=== PATIENT | male | born 1975 | race Caucasian/White ===

== ENCOUNTER 2019-04-24 10:20 | Emergency (ER) | payer BC ==
--- NOTE | 2019-04-24 10:22 | EDM.PDOC ---
ED HPI GENERAL MEDICAL PROBLEM - General Chief Complaint: Skin Complaint Stated Complaint: rash on left arm Time Seen by Provider: 04/24/19 10:21 Source of Information: Reports: Patient History Limitations: Reports: No Limitations - History of Present Illness INITIAL COMMENTS - FREE TEXT/NARRATIVE: HISTORY AND PHYSICAL: History of present illness: Patient is a 43-year-old male presenting to the emergency room for chief complaint of rash on his left arm. Patient states approximately 3 weeks ago he had a small rash on his left forearm which has been increasing in size since. He reports it is itchy at times and was sleepy last night and draining. He denies change in laundry detergent, softener, or new lotion. 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 He states the rash feels dry and dempsey when washing it. He has tried working hands lotion which has not helped and then switch to [place] Nicky cream which did not help. Patient denies any fever, chills, headache, change in vision, syncope or near syncope. Denies any chest pain, back pain, shortness of breath or cough. Denies any abdominal pain, nausea , vomiting, diarrhea, constipation or dysuria. Has not noted any blood in urine or stool. Patient has been eating and drinking appropriately. Review of systems: As per history of present illness and below otherwise all systems reviewed and negative. Past medical history: As per history of present illness and as reviewed below otherwise noncontributory. Surgical history: As per history of present illness and as reviewed below otherwise noncontributory. Social history: See social history for further information Family history: As per history of present illness and as reviewed below otherwise noncontributory. Physical exam: General: He is a well-developed and well-nourished 43-year-old male. Alert and orientated. Nontoxic in appearance and in no acute distress. Vital signs are stable and have been reviewed by me. HEENT: Atraumatic, normocephalic, pupils equal and reactive bilaterally, negative for conjunctival pallor or scleral icterus, mucous membranes moist, TMs normal bilaterally, throat clear, neck supple, nontender, trachea midline. No drooling or trismus noted. No meningeal signs. No hot potato voice noted. Lungs: Clear to auscultation, breath sounds equal bilaterally, chest nontender. Heart: S1S2, regular rate and rhythm without overt murmur Abdomen: Soft, nondistended, nontender. Negative for masses or hepatosplenomegaly. Negative for costovertebral tenderness. Skin: Localized maculopapular papular rash noted to the left forearm that is the size of a pulmar surface, no drainage or vesicles noted. Otherwise skin is intact, warm and dry Extremities: Atraumatic, moves all extremities per self without difficulty or deficits, negative for cords or calf pain. Neurovascular unremarkable. Neuro: Awake, alert, oriented. Cranial nerves II through XII unremarkable. Cerebellum unremarkable. Motor and sensory unremarkable throughout. Exam nonfocal. Diagnostics: None Therapeutics: None Prescription: Triamcinolone acetate ointment, Medrol Dosepak Impression: Atopic Dermatitis Plan: 1. Take your medications as described. 2. Avoid new laundry detergents/softeners or scented lotions. 3. Return to the Emergency Room as needed and as discussed. Definitive disposition and diagnosis as appropriate pending reevaluation and review of above. - Related Data Allergies Allergy/AdvReac Type Severity Reaction Status Date / Time No Known Allergies Allergy Verified 04/24/19 10:35 Home Meds: Home Meds Allopurinol [Zyloprim] 300 mg PO DAILY 04/24/19 [History] Doxazosin [Doxazosin Mesylate] 4 mg PO DAILY 04/24/19 [History] Esomeprazole Magnesium [Nexium] 20 mg PO DAILY 04/24/19 [History] Montelukast [Singulair] 10 mg PO DAILY 04/24/19 [History] Potassium Chloride 1 tab DAILY 04/24/19 [History] amLODIPine [Norvasc] 5 mg PO DAILY 04/24/19 [History] ED ROS GENERAL - Review of Systems Review Of Systems: ROS reveals no pertinent complaints other than HPI. ED EXAM, SKIN/RASH Exam: See Below (See dictation) Course - Vital Signs Last Recorded V/S: Last Vital Signs Temp 96.0 F 04/24/19 10:32 Pulse 65 04/24/19 10:32 Resp 18 04/24/19 10:32 BP 136/90 04/24/19 10:32 Pulse Ox 97 04/24/19 10:32 Departure - Departure Time of Disposition: 10:58 Disposition: Home, Self-Care 01 Clinical Impression: Atopic dermatitis Qualifiers: Atopic dermatitis type: unspecified Qualified Code(s): L20.9 - Atopic dermatitis, unspecified - Discharge Information Instructions: Atopic Dermatitis Forms: ED Department Discharge Additional Instructions: The following information is given to patients seen in the emergency department who are being discharged to home. This information is to outline your options for follow-up care. We provide all patients seen in our emergency department with a follow-up referral. The need for follow-up, as well as the timing and circumstances, are variable depending upon the specifics of your emergency department visit. If you don't have a primary care physician on staff, we will provide you with a referral. We always advise you to contact your personal physician following an emergency department visit to inform them of the circumstance of the visit and for follow-up with them and/or the need for any referrals to a consulting specialist. The emergency department will also refer you to a specialist when appropriate. This referral assures that you have the opportunity for follow-up care with a specialist. All of these measure are taken in an effort to provide you with optimal care, which includes your follow-up. Under all circumstances we always encourage you to contact your private physician who remains a resource for coordinating your care. When calling for follow-up care, please make the office aware that this follow-up is from your recent emergency room visit. If for any reason you are refused follow-up, please contact the [facility] Emergency Department at and asked to speak to the emergency department charge nurse. [facility] [address] [place] [id number] [facility] [address] [place] [id number] 1. Take your medications as described. 2. Avoid new laundry detergents/softeners or scented lotions. 3. Return to the Emergency Room as needed and as discussed.
== END 2019-04-24 11:20 | disposition home or self-care (01) ==
LOC: MW.ED 10:20
DX: L20.9 Atopic dermatitis, unspecified (principal)
CPT/HCPCS: 99282

== ENCOUNTER 2019-06-25 00:37 | Observation (INO) | payer BC ==
[2019-06-25] MEDS ORDERED: Sodium Chloride 0.9% 10 ML Syringe FLUSH PRN (00:45)
[2019-06-25] MEDS ORDERED: Sodium Chloride 0.9% 1,000 ML IV SCH (00:45)
[2019-06-25] MEDS ORDERED: Sodium Chloride 0.9% 2.5 ML Syringe FLUSH PRN (00:45)
--- NOTE | 2019-06-25 00:53 | EDM.PDOC ---
ED HPI GENERAL MEDICAL PROBLEM - General Stated Complaint: LEFT SHOULDER PAIN Time Seen by Provider: 06/25/19 00:44 - History of Present Illness INITIAL COMMENTS - FREE TEXT/NARRATIVE: HISTORY AND PHYSICAL: History of present illness: Patient's 43-year-old male history of hypertension which has a concern of left arm numbness and discomfort he denies chest pain shows breath palpitations other concern she states he's had a somewhat off-and-on and he presented tonight to the more persistent than usual. He denies diaphoresis nausea or vomiting. He denies other numbness weakness or any other neurological signs or symptoms Review of systems: As per history of present illness and below otherwise all systems reviewed and negative. Past medical history: As per history of present illness and as reviewed below otherwise noncontributory. Surgical history: As per history of present illness and as reviewed below otherwise noncontributory. Social history: No reported history of drug or alcohol abuse. Family history: As per history of present illness and as reviewed below otherwise noncontributory. Physical exam: HEENT: Atraumatic, normocephalic, pupils reactive, negative for conjunctival pallor or scleral icterus, mucous membranes moist, throat clear, neck supple, nontender, trachea midline. Lungs: Clear to auscultation, breath sounds equal bilaterally, chest nontender. Heart: S1S2, regular, negative for clicks, rubs, or JVD. Abdomen: Soft, nondistended, nontender. Negative for masses or hepatosplenomegaly. Negative for costovertebral tenderness. Pelvis: Stable nontender. Genitourinary: Deferred. Rectal: Deferred. Extremities: Atraumatic, negative for cords or calf pain. Neurovascular unremarkable. Neuro: Awake, alert, oriented. Cranial nerves II through XII unremarkable. Cerebellum unremarkable. Motor and sensory unremarkable throughout. Exam nonfocal. Diagnostics: CBC CMP troponin PT/INR chest x-ray EKG CT brain Therapeutics: IV O2 monitor aspirin 324 mg Impression: #1 left arm numbness/pain #2 history of hypertension Definitive disposition and diagnosis as appropriate pending reevaluation and review of above. - Related Data Allergies Allergy/AdvReac Type Severity Reaction Status Date / Time No Known Allergies Allergy Verified 06/25/19 00:50 Home Meds: Home Meds Allopurinol [Zyloprim] 300 mg PO DAILY 04/24/19 [History] Doxazosin [Doxazosin Mesylate] 4 mg PO DAILY 04/24/19 [History] Esomeprazole Magnesium [Nexium] 40 mg PO DAILY 04/24/19 [History] Montelukast [Singulair] 10 mg PO DAILY 04/24/19 [History] Potassium Chloride 1 tab DAILY 04/24/19 [History] amLODIPine [Norvasc] 10 mg PO DAILY 04/24/19 [History] Past Medical History - Past Health History Medical/Surgical History: Denies Medical/Surgical History Cardiovascular History: Reports: Hypertension Other Respiratory History: reactive airway Musculoskeletal History: Reports: Gout - Past Surgical History Musculoskeletal Surgical History: Reports: Arthroscopic Knee Social & Family History - Family History Family Medical History: Noncontributory ED ROS GENERAL - Review of Systems Review Of Systems: Comprehensive ROS is negative, except as noted in HPI. ED EXAM, GENERAL - Physical Exam Exam: See Below (See dictation) Course - Vital Signs Last Recorded V/S: Last Vital Signs Temp 36.6 C 06/25/19 00:54 Pulse 78 06/25/19 00:54 Resp 20 06/25/19 00:54 BP 182/110 H 06/25/19 00:54 Pulse Ox 97 06/25/19 00:54 - Orders/Labs/Meds Orders: Active Orders 24 hr Category Date Time Status Cardiac Monitoring [RC] . DIRECTED Care 06/25/19 00:44 Active EKG Documentation Completion [RC] STAT Care 06/25/19 00:44 Active Oxygen Therapy, ED [RC] ASDIRECTED Care 06/25/19 00:44 Active Pulse Oximetry [RC] ASDIRECTED Care 06/25/19 00:44 Active COMPREHENSIVE METABOLIC PN,CMP [CHEM] Stat Lab 06/25/19 01:44 Ordered Sodium Chloride 0.9% [Normal Saline] 1,000 ml Med 06/25/19 00:45 Active IV STAT Sodium Chloride 0.9% [Saline Flush] Med 06/25/19 00:45 Active 10 ml FLUSH ASDIRECTED PRN Sodium Chloride 0.9% [Saline Flush] Med 06/25/19 00:45 Active 2.5 ml FLUSH ASDIRECTED PRN Saline Lock Insert [OM.PC] Stat Oth 06/25/19 00:44 Ordered Medication Orders Sodium Chloride (Normal Saline) 1,000 mls @ 125 mls/hr IV STAT SWAPNA Last Admin: 06/25/19 01:17 Dose: 125 mls/hr Sodium Chloride (Saline Flush) 10 ml FLUSH ASDIRECTED PRN PRN Reason: Keep Vein Open Last Admin: 06/25/19 01:17 Dose: 10 ml Sodium Chloride (Saline Flush) 2.5 ml FLUSH ASDIRECTED PRN PRN Reason: Keep Vein Open Last Admin: 06/25/19 01:18 Dose: 2.5 ml Labs: Laboratory Tests 06/25/19 06/25/19 06/25/19 Range/Units 00:45 00:45 00:45 WBC 8.56 (4.0-11.0) K/uL RBC 5.09 (4.50-5.90) M/uL Hgb 16.1 (13.0-17.0) g/dL Hct 44.6 (38.0-50.0) % MCV 87.6 (80.0-98.0) fL MCH 31.6 (27.0-32.0) pg MCHC 36.1 (31.0-37.0) g/dL RDW Std Deviation 39.7 (28.0-62.0) fl RDW Coeff of Dave 13 (11.0-15.0) % Plt Count 261 (150-400) K/uL MPV 9.80 (7.40-12.00) fL Neut % (Auto) 54.2 (48.0-80.0) % Lymph % (Auto) 34.9 (16.0-40.0) % [place] % (Auto) 9.6 (0.0-15.0) % Eos % (Auto) 1.1 (0.0-7.0) % Baso % (Auto) 0.2 (0.0-1.5) % Neut # (Auto) 4.6 (1.4-5.7) K/uL Lymph # (Auto) 3.0 H (0.6-2.4) K/uL [place] # (Auto) 0.8 (0.0-0.8) K/uL Eos # (Auto) 0.1 (0.0-0.7) K/uL Baso # (Auto) 0.0 (0.0-0.1) K/uL INR 1.00 Troponin I < 0.050 (0.000-0.056) ng/mL Meds: Medications Generic Name Dose Route Start Last Admin Trade Name Danishq PRN Reason Stop Dose Admin Sodium Chloride 1,000 mls @ 125 mls/hr 06/25/19 00:45 06/25/19 01:17 Normal Saline IV 125 mls/hr STAT SWAPNA Administration Sodium Chloride 10 ml 06/25/19 00:45 06/25/19 01:17 Saline Flush FLUSH 10 ml ASDIRECTED PRN Administration Keep Vein Open Sodium Chloride 2.5 ml 06/25/19 00:45 06/25/19 01:18 Saline Flush FLUSH 2.5 ml ASDIRECTED PRN Administration Keep Vein Open Departure - Departure Time of Disposition: 01:46 Disposition: Refer to Observation Condition: Good Clinical Impression: Paresthesia, Arm pain - Discharge Information - My Orders Last 24 Hours: My Active Orders 06/25/19 00:44 Cardiac Monitoring [RC] . DIRECTED EKG Documentation Completion [RC] STAT Oxygen Therapy, ED [RC] ASDIRECTED Pulse Oximetry [RC] ASDIRECTED Saline Lock Insert [OM.PC] Stat 06/25/19 00:45 Sodium Chloride 0.9% [Normal Saline] 1,000 ml IV STAT Sodium Chloride 0.9% [Saline Flush] 10 ml FLUSH ASDIRECTED PRN Sodium Chloride 0.9% [Saline Flush] 2.5 ml FLUSH ASDIRECTED PRN 06/25/19 01:44 COMPREHENSIVE METABOLIC PN,CMP [CHEM] Stat - Assessment/Plan Last 24 Hours: My Active Orders 06/25/19 00:44 Cardiac Monitoring [RC] . DIRECTED EKG Documentation Completion [RC] STAT Oxygen Therapy, ED [RC] ASDIRECTED Pulse Oximetry [RC] ASDIRECTED Saline Lock Insert [OM.PC] Stat 06/25/19 00:45 Sodium Chloride 0.9% [Normal Saline] 1,000 ml IV STAT Sodium Chloride 0.9% [Saline Flush] 10 ml FLUSH ASDIRECTED PRN Sodium Chloride 0.9% [Saline Flush] 2.5 ml FLUSH ASDIRECTED PRN 06/25/19 01:44 COMPREHENSIVE METABOLIC PN,CMP [CHEM] Stat
--- NOTE | 2019-06-25 01:25 | CR ---
Indication: Left arm pain Technique: Chest 1 view Comparison: September 25, 2011 Findings/Impression: Cardiovascular and mediastinum: Heart size and vasculature are normal in caliber and appearance. Mediastinum is within normal limits. Lungs and pleural space: Lungs are clear. No sign of infiltrate or mass. No sign of pleural effusion. No pneumothorax. Bones and soft tissues: No significant findings. Dictated by Kalyani Fried MD @ Jun 25 2019 1:23AM Signed by Dr. Kalyani Fried @ Jun 25 2019 1:23AM
--- NOTE | 2019-06-25 01:27 | CT ---
INDICATION: Left arm numbness TECHNIQUE: CT head without contrast. COMPARISON: None FINDINGS: CSF spaces: Within normal limits for age. Brain parenchyma: The siegel-white differentiation is normal. No sign of mass, hemorrhage, or midline shift. Skull base and calvarium: The visualized paranasal sinuses and mastoid air cells demonstrate no acute or significant findings. The visualized orbits are grossly unremarkable. No skull fractures. IMPRESSION: Unremarkable noncontrast head CT. Please note that all CT scans at this facility use dose modulation, iterative reconstruction, and/or weight-based dosing when appropriate to reduce radiation dose to as low as reasonably achievable. Dictated by Kalyani Fried MD @ Jun 25 2019 1:25AM Signed by Dr. Kalyani Fried @ Jun 25 2019 1:25AM
[2019-06-25] MEDS ORDERED: Aspirin 81 MG Tab.Chew PO ONE (01:52)
[2019-06-25 01:57] LABS: POTASSIUM,K 3.4 mmol/L (3.5-5.1)
--- NOTE | 2019-06-25 09:25 | CR ---
INDICATION: Pain and numbness. COMPARISON: none TECHNIQUE: Three-view left shoulder FINDINGS: The AC joint and glenohumeral joint are anatomically aligned. There is no evidence of a fracture. There is a small sclerotic bone island within the humeral head. There is no evidence bone erosion. The clavicle and upper left ribs appear intact. The soft tissues appear normal. IMPRESSION: Negative left shoulder. Dictated by Femi Edgar MD @ Jun 25 2019 9:21AM Signed by Dr. Femi Edgar @ Jun 25 2019 9:23AM
[2019-06-25 09:50] LABS: BLOOD UREA NITROGEN,BUN 17 mg/dL (7.0-18.0); CARBON DIOXIDE,CO2 25.4 mmol/L (21.0-32.0); CHLORIDE,CL 103 mmol/L (98-107); GLUCOSE RANDOM 90 mg/dL (74-106); POTASSIUM,K 3.6 mmol/L (3.5-5.1); SODIUM,NA 138 mmol/L (136-148)
--- NOTE | 2019-06-25 12:57 | PCM.HP.2 ---
H&P History of Present Illness - General Date of Service: 06/25/19 Admit Problem/Dx: Admission Diagnosis/Problem Admission Diagnosis/Problem Paresthesia Source of Information: Patient History Limitations: Reports: No Limitations - History of Present Illness Initial Comments - Free Text/Narative: This 43 year old male with pmh of HTN and gout presented with L arm parathesias that started last evening. He denies chest pain, SOB, N/V or abdominal pain. He reports the pain starts right at his L humeral head and shoots down intermittently to his elbow area the numbness was his entire L arm, kind of like it was asleep. he denies trauma. Reports he deals with chronic joint pain from gout but the numbness was different. He denies neck pain or neck trauma. 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 No wrist pain. No repetitive movements at work or home. He denies alcohol, tobacco or recreational drug use. In the ED Labwork WNL. BUN 19, Cr 1.5 on admission. Troponin negative. CXR negative. Head CT negative. VS stable. HR 50-90s. Left Chest Pain Score (Numeric/FACES): 3 - Related Data Allergies/Adverse Reactions: Allergies Allergy/AdvReac Type Severity Reaction Status Date / Time No Known Allergies Allergy Verified 06/25/19 02:57 Home Medications: Home Meds Allopurinol [Zyloprim] 300 mg PO DAILY 04/24/19 [History] Doxazosin [Cardura] 4 mg PO DAILY 04/24/19 [History] Esomeprazole Magnesium [Nexium] 40 mg PO DAILY 04/24/19 [History] Montelukast [Singulair] 10 mg PO DAILY 04/24/19 [History] Potassium Chloride 1 tab DAILY 04/24/19 [History] amLODIPine [Norvasc] 10 mg PO DAILY 04/24/19 [History] Past Medical History - Past Health History Medical/Surgical History: Denies Medical/Surgical History Cardiovascular History: Reports: Hypertension Other Respiratory History: reactive airway Musculoskeletal History: Reports: Gout - Infectious Disease History Infectious Disease History: Reports: Chicken Pox - Past Surgical History Musculoskeletal Surgical History: Reports: Arthroscopic Knee Social & Family History - Family History Family Medical History: Noncontributory - Tobacco Use Smoking Status *Q: Never Smoker Second Hand Smoke Exposure: No - Caffeine Use Caffeine Use: Reports: Soda, Tea - Recreational Drug Use Recreational Drug Use: No H&P Review of Systems - Review of Systems: Review Of Systems: See Below General: Reports: No Symptoms. Denies: Fever, Chills, Malaise HEENT: Reports: No Symptoms. Denies: Headaches, Sinus Congestion, Vertigo, Visual Changes Pulmonary: Reports: No Symptoms. Denies: Shortness of Breath, Pleuritic Chest Pain, Cough Cardiovascular: Reports: No Symptoms. Denies: Chest Pain, Dyspnea on Exertion, Edema Gastrointestinal: Reports: No Symptoms. Denies: Abdominal Pain, Black Stool Genitourinary: Reports: No Symptoms. Denies: Dysuria, Frequency Musculoskeletal: Reports: Shoulder Pain (L). Denies: Neck Pain Neurological: Reports: Paresthesia (L arm) Hematologic/Lymphatic: Reports: No Symptoms Immunologic: Reports: No Symptoms Exam - Exam Exam: See Below - Vital Signs Vital Signs: Last Vital Signs Temp 96.9 F 06/25/19 07:20 Pulse 56 L 06/25/19 07:20 Resp 16 06/25/19 07:20 BP 120/80 06/25/19 07:20 Pulse Ox 95 06/25/19 07:20 Weight: 109.543 kg - Exam General: Alert, Oriented, Cooperative HEENT: Conjunctiva Clear, Mucosa Moist & [place], Pupils Equal, Pupils Reactive Neck: Supple, Trachea Midline, Full Range of Motion. No: Lymphadenopathy, JVD Lungs: Clear to Auscultation, Normal Respiratory Effort Cardiovascular: Regular Rate, Regular Rhythm, Normal S1, Normal S2. No: Systolic Murmur GI/Abdominal Exam: Normal Bowel Sounds, Soft, Non-Tender Back Exam: Normal Inspection, Full Range of Motion Extremities: Normal Inspection, Normal Range of Motion, Non-Tender, No Pedal Edema, Other (tenderness and pain to L shoulder with movement. Most tenderness to palpation noted to tricep with movement as well. Reports Xrays on shoulder and movement brought back numbness to arm but after position was better this decreased again.) Neurological: Cranial Nerves Intact, Reflexes Equal Bilateral, Strength Equal Bilateral, Normal Gait, Normal Speech Neuro Extensive - Mental Status: Alert, Oriented x3 Neuro Extensive - Motor, Sensory, Reflexes: CN II-XII Intact Psychiatric: Alert, Normal Affect, Normal Mood - Patient Data Lab Results Last 24 hrs: Laboratory Results - last 24 hr 06/25/19 06/25/19 06/25/19 Range/Units 00:45 00:45 00:45 WBC 8.56 (4.0-11.0) K/uL RBC 5.09 (4.50-5.90) M/uL Hgb 16.1 (13.0-17.0) g/dL Hct 44.6 (38.0-50.0) % MCV 87.6 (80.0-98.0) fL MCH 31.6 (27.0-32.0) pg MCHC 36.1 (31.0-37.0) g/dL RDW Std Deviation 39.7 (28.0-62.0) fl RDW Coeff of Dave 13 (11.0-15.0) % Plt Count 261 (150-400) K/uL MPV 9.80 (7.40-12.00) fL Neut % (Auto) 54.2 (48.0-80.0) % Lymph % (Auto) 34.9 (16.0-40.0) % [place] % (Auto) 9.6 (0.0-15.0) % Eos % (Auto) 1.1 (0.0-7.0) % Baso % (Auto) 0.2 (0.0-1.5) % Neut # (Auto) 4.6 (1.4-5.7) K/uL Lymph # (Auto) 3.0 H (0.6-2.4) K/uL [place] # (Auto) 0.8 (0.0-0.8) K/uL Eos # (Auto) 0.1 (0.0-0.7) K/uL Baso # (Auto) 0.0 (0.0-0.1) K/uL INR 1.00 Sodium (136-148) mmol/L Potassium (3.5-5.1) mmol/L Chloride (98-107) mmol/L Carbon Dioxide (21.0-32.0) mmol/L BUN (7.0-18.0) mg/dL Creatinine (0.8-1.3) mg/dL Est Cr Clr Drug Dosing mL/min Estimated GFR (MDRD) ml/min Glucose (74-106) mg/dL Calcium (8.5-10.1) mg/dL Magnesium (1.8-2.4) mg/dL Total Bilirubin (0.2-1.0) mg/dL AST (15-37) IU/L ALT (14-63) IU/L Alkaline Phosphatase (46-116) U/L Troponin I < 0.050 (0.000-0.056) ng/mL Total Protein (6.4-8.2) g/dL Albumin (3.4-5.0) g/dL Globulin (2.6-4.0) g/dL Albumin/Globulin Ratio (0.9-1.6) 06/25/19 06/25/19 Range/Units 00:45 08:37 WBC (4.0-11.0) K/uL RBC (4.50-5.90) M/uL Hgb (13.0-17.0) g/dL Hct (38.0-50.0) % MCV (80.0-98.0) fL MCH (27.0-32.0) pg MCHC (31.0-37.0) g/dL RDW Std Deviation (28.0-62.0) fl RDW Coeff of Dave (11.0-15.0) % Plt Count (150-400) K/uL MPV (7.40-12.00) fL Neut % (Auto) (48.0-80.0) % Lymph % (Auto) (16.0-40.0) % [place] % (Auto) (0.0-15.0) % Eos % (Auto) (0.0-7.0) % Baso % (Auto) (0.0-1.5) % Neut # (Auto) (1.4-5.7) K/uL Lymph # (Auto) (0.6-2.4) K/uL [place] # (Auto) (0.0-0.8) K/uL Eos # (Auto) (0.0-0.7) K/uL Baso # (Auto) (0.0-0.1) K/uL INR Sodium 138 138 (136-148) mmol/L Potassium 3.4 L 3.6 (3.5-5.1) mmol/L Chloride 101 103 (98-107) mmol/L Carbon Dioxide 25.0 25.4 (21.0-32.0) mmol/L BUN 19 H 17 (7.0-18.0) mg/dL Creatinine 1.5 H 1.2 (0.8-1.3) mg/dL Est Cr Clr Drug Dosing 74.59 93.24 mL/min Estimated GFR (MDRD) 51.3 > 60.0 ml/min Glucose 105 90 (74-106) mg/dL Calcium 9.0 8.9 (8.5-10.1) mg/dL Magnesium 2.1 (1.8-2.4) mg/dL Total Bilirubin 0.4 (0.2-1.0) mg/dL AST 29 (15-37) IU/L ALT 53 (14-63) IU/L Alkaline Phosphatase 122 H (46-116) U/L Troponin I (0.000-0.056) ng/mL Total Protein 8.8 H (6.4-8.2) g/dL Albumin 4.3 (3.4-5.0) g/dL Globulin 4.5 H (2.6-4.0) g/dL Albumin/Globulin Ratio 1.0 (0.9-1.6) Result Diagrams: 06/25/19 00:45 06/25/19 08:37 - Problem List (1) Arm pain SNOMED Code(s): 990386629 ICD Code: M79.603 - PAIN IN ARM, UNSPECIFIED Status: Acute Current Visit : Yes (2) Paresthesia SNOMED Code(s): 15583470 ICD Code: R20.2 - PARESTHESIA OF SKIN Status: Acute Current Visit: Yes Problem List Initiated/Reviewed/Updated: Yes Orders Last 24hrs: Active Orders 24 hr Category Date Time Status Patient Status [ADT] Stat ADT 06/25/19 01:48 Active Cardiac Monitoring [RC] . DIRECTED Care 06/25/19 00:44 Active EKG Documentation Completion [RC] STAT Care 06/25/19 00:44 Active Oxygen Therapy, ED [RC] ASDIRECTED Care 06/25/19 00:44 Active Pulse Oximetry [RC] ASDIRECTED Care 06/25/19 00:44 Active Ready for Discharge [RC] PER UNIT ROUTINE Care 06/25/19 10:59 Active Telemetry Monitoring [Cardiac Monitoring] [RC] Q8H Care 06/25/19 04:23 Active Regular Diet [DIET] Diet 06/25/19 Breakfast Active Sodium Chloride 0.9% [Saline Flush] Med 06/25/19 00:45 Active 10 ml FLUSH ASDIRECTED PRN Sodium Chloride 0.9% [Saline Flush] Med 06/25/19 00:45 Active 2.5 ml FLUSH ASDIRECTED PRN Saline Lock Insert [OM.PC] Stat Oth 06/25/19 00:44 Ordered Medication Orders Sodium Chloride (Saline Flush) 10 ml FLUSH ASDIRECTED PRN PRN Reason: Keep Vein Open Last Admin: 06/25/19 01:17 Dose: 10 ml Sodium Chloride (Saline Flush) 2.5 ml FLUSH ASDIRECTED PRN PRN Reason: Keep Vein Open Last Admin: 06/25/19 01:18 Dose: 2.5 ml Assessment/Plan Comment:: This 43 year old male admitted with L arm parathesia and pain. 1. L arm parathesia: Reproducible with shoulder movement. Again no chest pain or associated cardiac concerns. Xray negative for acute process. Did notice sclerotic lesion to humeral head. I offered Orthopedic referral, but he would like to just follow with PCP, Dr Jason Stephen for this. Discharge Plan: Mild continued numbness and tingling, but significantly better. Denies chest pain. No neck pain. Offered Orthopedic follow up for possible shoulder impingement, he declined and would like to see PCP for now. He is to return to ED or clinic if concerns should arise. Continue all current home medications. Stay hydrate and return to ED if concerns arise. - Mortality Measure Prognosis:: Good
== END 2019-06-25 12:00 | disposition home or self-care (01) ==
LOC: MW.ED 00:37 → MW.MS 01:48
PROVIDERS: ADMIT Internal Medicine; ATTEND Internal Medicine
DX: M79.602 Pain in left arm (principal); R20.2 Paresthesia of skin; I10 Essential (primary) hypertension; M10.9 Gout, unspecified
CPT/HCPCS: 36415; 70450; 71045; 73030; 80048; 80053; 83735; 84484; 85025; 85610; 93005; A9270; J7030; 96360; 96361; 99285-25; G0378